=== PATIENT | male | born 1955 | race Caucasian/White ===

== ENCOUNTER 2020-10-05 08:29 | Outpatient (CLI) | payer MEDICARE, SELFPAY ==
--- NOTE | ~2020-10-05 | US_ITS ---
EXAMINATION: US right upper quadrant DATE: 10/05/2020 09:08 INDICATION: Abnormal liver function tests. TECHNIQUE: Multiple grayscale and Doppler ultrasound images of the abdomen were obtained. COMPARISON: None FINDINGS: The visualized portions of the head, body, and tail of the pancreas are normal. There is di ffuse hepatic steatosis. There is normal flow in main portal vein. The gallbladder is normal in size. No gallstones or gallbladder wall thickening. There is no sonographic Brown sign. The common duct i s normal and measures 5 mm. IMPRESSION: 1. Diffuse hepatic steatosis. Reviewed, dictated and finalized at location A.
== END 2020-10-05 08:30 | disposition home or self-care (01) ==
LOC: CHSIMG 08:31
PROVIDERS: PCP Internal Medicine; Visit Provider Internal Medicine
DX: R94.5 Abnormal results of liver function studies (principal)
CPT/HCPCS: 76705

== ENCOUNTER 2021-03-10 14:24 | Outpatient (CLI) | payer MEDICARE, SELFPAY ==
--- NOTE | ~2021-03-10 | XR_ITS ---
EXAMINATION: XR chest 2V EXAM DATE: 03/10/2021 14:43 INDICATION: Chronic cough nonproductive x 3 months no hx of resp illness . TECHNIQUE: Frontal and lateral projections of the chest obtained and reviewed. Comparison is made to prior examination from 09/12/2016. FINDINGS: There is diffuse abnormal reticulation, more pronounced than in 2017. Probably some amount of chronic interstitial lung disease. Superimposed edema or infection not excludable. Mild cardiomeg brendon. No pneumothorax or pleural effusion. There are no osseous abnormalities identified. IMPRESSION: 1. Progression of abnormal reticulation, chronic interstitial lung disease. 2. Superimposed edema or pneumonia not excludable. Reviewed, dictated and finalized at location A.
== END 2021-03-10 14:25 | disposition home or self-care (01) ==
LOC: CHSIMG 14:27
PROVIDERS: PCP Internal Medicine; Visit Provider Internal Medicine
DX: R05 Cough (principal)
CPT/HCPCS: 71046

== ENCOUNTER 2021-04-19 01:39 | Day surgery (SDC) | payer MEDICARE, SELFPAY ==
[2021-04-05 13:18] VITALS: BMI 30.2
[2021-04-19 07:44] VITALS: BP 145/75; PULSE 93; RESP 18; TEMP 36.6; O2SAT 94; BMI 30.9
[2021-04-19] MEDS: LACTATED RINGERS 1,000 ML 150 ML IV CONT (07:59)
--- NOTE | 2021-04-19 08:11 | P.CONGI_ITS ---
Assessment and Plan Assessment and plan (1) Dysphagia: Code(s): R13.10 - Dysphagia, unspecified Status: Acute Assessment and Plan: Patient complains of dysphagia. Suspicious for esophageal narrowing. Patient has a prior history of esophageal stricture ring requiring dilatation. Plan is for EGD to assess more thoroughly with possible dilatation. Continue PPI for now. Further recommendations may be given after endoscopy. (2) Encounter for screening colonoscopy: Code(s): Z12.11 - Encounter for screening for malignant neoplasm of colon Status: Acute Assessment and Plan: Patient presents for screening colonoscopy. Has been 10 years since last ex am. He appears to be at average risk for colon polyps at this time. GI Consult Note Consult date/time: 04/19/21 08:11 HPI: Chintan Garcia is a 66 year old male Presents for both colonoscopy and EGD. Patient desires neoplasia screening. Has been more than 10 years since last exam. He reports his current weight appetite bowel movements are normal. He denies abdominal pain. He has had no bleeding. Screening colonoscopy will be performed today. Patient also complains of difficulty swallowing. He reports solid food will catch in the mid substernal portion of the chest. He notices this particularly with steak and occasionally with lettuce. He has noticed these symptoms intermittently over the last 2 years. He denies any weight loss or bleeding. He does report a prior history of esophageal web requiring dilatation 10 years ago. Patient denies any heartburn. He has been maintained on proton pump inhibitors for many years. Currently takes omeprazole 20mg p.o. daily on a regular basis. EGD will be performed because of dysphagia today. Review of Systems Review of Systems: All systems reviewed & are unremarkable except as noted in HPI and below PMFSH Social History Social History Smoking status: Never smoker Alcohol intake: current Living arrangements: with family Spiritual care concerns: No Meds Home Medications and Allergies Home Medications Medication Instructions Recorded Confirmed Type amlodipine 10 mg PO DAILY 04/05/21 04/19/21 History fosinopril 20 mg PO DAILY 04/05/21 04/19/21 History lovastatin 40 mg PO DAILY 04/05/21 04/19/21 History multivitamin 1 tablet PO DAILY 04/05/21 04/19/21 History omeprazole 20 mg PO DAILY 04/05/21 04/19/21 History Allergies Allergy/AdvReac Type Severity Reaction Status Date / Time iodine Allergy Severe Rash Verified 04/19/21 07:43 --BETADINE PREP Allergy Severe Rash Uncoded 04/19/21 07:43 Vital Signs Vital Signs - 24 hr 04/19/21 07:44 Temperature 98 F Pulse Rate 93 Respiratory Rate 18 Blood Pressure 145/75 H Pulse Oximetry 94 Exam Narrative: Physical exam reveals patient to be alert. Vital signs stable. HEENT exam is unremarkable. Patient is anicteric. Lungs are clear to auscultation and percussion. Heart is without murmur or extra sounds. Abdominal exam bowel sounds are present soft nontender with no organomegaly. Digital external rectal exam is normal.
--- NOTE | 2021-04-19 08:17 | WPDANESEPPF ---
Anes - Initial Pre Proc Eval Procedure: Operation Date: 04/19/21 09:00 Proposed Procedures p Esophagogastroduodenoscopy & Screening Colonoscopy - Basil Rodas MD Date/Time: 04/19/21 08:17 Surgeon: Basil Rodas MD Pre Op Diagnosis: neoplasm screening,Esophageal stricture, dysphagia Patient Data Age: 66 Gender: M Height: 1.78 m Weight: 97.9 kg Last Vital Signs Temp 36.6 C 04/19/21 07:44 Pulse 93 04/19/21 07:44 Resp 18 04/19/21 07:44 BP 145/75 H 04/19/21 07:44 Pulse Ox 94 04/19/21 07:44 Allergies Allergy/AdvReac Type Severity Reaction Status Date / Time iodine Allergy Severe Rash Verified 04/19/21 07:43 --BETADINE PREP Allergy Severe Rash Uncoded 04/19/21 07:43 Home Medications Medication Instructions Recorded Confirmed Type amlodipine 10 mg PO DAILY 04/05/21 04/19/21 History fosinopril 20 mg PO DAILY 04/05/21 04/19/21 History lovastatin 40 mg PO DAILY 04/05/21 04/19/21 History multivitamin 1 tablet PO DAILY 04/05/21 04/19/21 History omeprazole 20 mg PO DAILY 04/05/21 04/19/21 History Patient hx anesthesia problems: none Family hx anesthesia problems: none Results Review: All pre-operative results and documents have been reviewed as part of the pre-operative evaluation. [facility] Past Medical History Medical History (Updated 04/19/21 @ 08:18 by Rigo Yusuf MD) HTN (hypertension) Hyperlipidemia Obesity Social History Social History Smoking status: Never smoker Alcohol intake: current Living arrangements: with family Spiritual care concerns: No Anes - Eval Final PreProcedure Day of Procedure 04/19/21 08:17 Patient weight: obese Heart: regular rate and rhythm Lungs: clear to auscultation Airway: Mallampati scale class II Neurological: alert and oriented Last oral intake: >/= 8 hours ASA classification: III Emergent: no Anesthetic plan: proceed Anesthesia type and monitoring: general GIVS and standard monitoring Results Review: All pre-operative results and documents have been reviewed as part of the pre-operative evaluation. Informed Consent: The patient's anesthetic plan and its attendant risks and benefits were discussed with the patient/family/POA. Questions were solicited and answers provided to the satisfaction of the patient/family/POA.
--- NOTE | 2021-04-19 09:02 | SUR.OPER ---
EGD COMPLETED AT 856, COLONOSCOPY STARTED AT 901
[2021-04-19 09:15] VITALS: BP 107/67; PULSE 85; RESP 23; O2SAT 97
[2021-04-19 09:25] VITALS: BP 122/93; PULSE 86; RESP 20; O2SAT 97
[2021-04-19 09:35] VITALS: BP 134/85; PULSE 76; RESP 25; O2SAT 97
== END 2021-04-19 09:45 | disposition home or self-care (01) ==
PROVIDERS: PCP Internal Medicine; Visit Provider Internal Medicine Gastroenterology
PROC: 0DJ08ZZ Inspection of Upper Intestinal Tract, Via Natural or Artificial Opening Endoscopic (ICD-10-PCS; CPT 43235; principal; 2021-04-19 09:00)
DX: Z12.11 Encounter for screening for malignant neoplasm of colon (principal); D12.5 Benign neoplasm of sigmoid colon; R13.10 Dysphagia, unspecified; Q39.4 Esophageal web; K64.8 Other hemorrhoids
CPT/HCPCS: 45385; 43235; 43450; 88305; J2704; J7120

== ENCOUNTER 2021-07-12 09:42 | Outpatient (CLI) | payer MEDICARE, SELFPAY ==
--- NOTE | ~2021-07-12 | XR_ITS ---
EXAMINATION: XR chest 2V EXAM DATE: 07/12/2021 10:00 INDICATION: f/u chronic lung disease . TECHNIQUE: Frontal and lateral projections of the chest obtained and reviewed. Comparison is made to prior examination from 03/10/2021. FINDINGS: Mild cardiomegaly. There is diffuse lower lung zone predominant abnormal reticulation, unc hanged compared to March, more pronounced compared to an x-ray from 2017. Could be nonspecific in terstitial pneumonitis pattern interstitial lung disease with many possible underlying etiologies inc luding collagen vascular disease, medications/drugs, prior viral infection (COVID-19), hypersensitivi ty pneumonitis, idiopathic etiologies. No pneumothorax or pleural effusion. There are no osseous abno rmalities identified. IMPRESSION: Diffuse mid and lower lung zone abnormal reticulation, likely interstitial lung disease. Reviewed, dictated and finalized at location A. PARTS CUTTER MACHINE IMPRESSION: Diffuse mid and lower lung zone abnormal reticulation, likely inte rstitial lung disease.
== END 2021-07-12 09:43 | disposition home or self-care (01) ==
LOC: CHSIMG 09:45
PROVIDERS: PCP Internal Medicine
DX: R06.89 Other abnormalities of breathing (principal)
CPT/HCPCS: 71046

== ENCOUNTER 2021-07-20 12:59 | Outpatient (CLI) | payer MEDICARE, SELFPAY ==
[2021-07-20 13:56] LABS: SARS-CoV-2 Ag Positive (Negative)
[2021-07-20 14:06] LABS: Influenza Control Valid (Valid)
== END 2021-07-20 13:00 | disposition home or self-care (01) ==
LOC: CHSLAB 13:03
PROVIDERS: PCP Internal Medicine; Visit Provider Internal Medicine
DX: U07.1 COVID-19 (principal); J06.9 Acute upper respiratory infection, unspecified
CPT/HCPCS: 87081; 87426; 87804; 87880; C9803

== ENCOUNTER 2021-07-20 15:04 | Inpatient (IN) | payer MEDICARE, SELFPAY ==
[2021-07-20] VITALS (12 sets, daily range): BP systolic 127–143; BP diastolic 65–76; PULSE 78–132; RESP 20–25; TEMP 37.1–37.9; O2SAT 76–100; BMI 29.9
--- NOTE | ~2021-07-20 | XR_ITS ---
XR chest 1V portable DATE: 07/24/2021 08:58 INDICATION: Dyspnea. Covid pneumonia. TECHNIQUE: Portable AP chest on 07/24/2021 at 0841 hours COMPARISON: 07/21/2021 CTA chest chest 07/20/2021 portable AP chest FINDINGS: Cardiomegaly. There are diffuse scattered patchy bilateral pulmonary infiltrates, without significant change since 07/20/2021. No pleural effusion or pneumothorax is evident. IMPRESSION: Relatively stable extensive scattered patchy bilateral pulmonary infiltrates since 022 Reviewed, dictated and finalized at location A. STRIAL TRUCK OPERATOR IMPRESSION: Relatively stable extensive scattered patchy bilateral pulmonary in filtrates since 07/20/2021
--- NOTE | ~2021-07-20 | NM_ITS ---
EXAMINATION: NM pulmonary perfusion DATE: 07/20/2021 19:46 INDICATION: Dyspnea. TECHNIQUE: 2.75 mCi Tc-99m MAA was administered intravenously for perfusion images. Scintigraphic im ages of the chest were obtained. COMPARISON: Chest single view 07/20/2021 FINDINGS: Obesity decreases sensitivity and specificity. Perfusion images show small and moderate sized defects in the lower lobes. Defects in the upper lobes and right middle lobe may be secondary to body wall a ttenuation. IMPRESSION: 1. Nondiagnostic (intermediate probability for pulmonary embolism). Reviewed, dictated and finalized at location A. R INSTALLER
--- NOTE | ~2021-07-20 | XR_ITS ---
EXAMINATION: XR chest 1V portable DATE: 07/20/2021 15:38 INDICATION: COVID-19 pneumonia. TECHNIQUE: A single frontal view of the chest was obtained. COMPARISON: Chest 2 views 07/12/2021, 03/10/2021, 09/12/16 FINDINGS: The lung volumes are normal. There are interstitial and airspace opacities throughout the l ungs bilaterally. No pleural effusion or pneumothorax. Cardiomegaly is noted. IMPRESSION: 1. Worsened diffuse lung disease, likely pneumonia or pulmonary edema superimposed on chronic interst itial lung disease. 2. Cardiomegaly. Reviewed, dictated and finalized at location A. R PLACER IMPRESSION: 1. Worsened diffuse lung disease, likely pneumonia or pulmonary edema superimpo sed on chronic interstitial lung disease. 2. Cardiomegaly.
--- NOTE | ~2021-07-20 | CT_ITS ---
EXAMINATION: CTA chest PE protocol DATE: 07/21/2021 18:59 INDICATION: Acute respiratory failure TECHNIQUE: Computed tomography angiography (CTA) of the chest was performed with 100 mL Omnipaque-350 intravenous contrast timed to evaluate the pulmonary arteries. Coronal maximum intensity projection 3D-reconstructions were created by the technologist. The dose-length product (DLP) was 648.24 mGy-cm. Automated exposure control and iterative reconstruction technique were employed. COMPARISON: None. FINDINGS: The pulmonary arteries are well-opacified. No pulmonary embolism is identified. The heart s ize is normal. There is calcified coronary artery atherosclerosis. There are diffuse interstitial and airspace opacities opacities throughout all lung zones. There is no pleural effusion or pneumothorax . Mildly enlarged bilateral hilar lymph nodes are likely reactive. There is moderate thoracic spondyl osis. IMPRESSION: 1. No pulmonary embolus. 2. Diffuse lung disease, consistent with COVID 19 pneumonia. Reviewed, dictated and finalized at location F. BIOLOGY TEACHER
--- NOTE | 2021-07-20 15:27 | ECG_ITS ---
Measurements Intervals [place] Rate: 114 P: 34 TN: 151 QRS: 42 QRSD: 81 T: 47 QT: 306 QTc: 421 Interpretive Statements SINUS TACHYCARDIA BORDERLINE ST ABNORMALITY- ANTERIOR LEADS ABNORMAL ECG Electronically Signed On 07-20-2021 15:33:40 GRIPPER INSTALLER by Quinton Hugo D.O.
--- NOTE | 2021-07-20 15:33 | ED.SOB ---
HPI - SOB/Dyspnea General Chief Complaint: Shortness of Breath/Dyspnea Stated Complaint: shortness of breath Time Seen by Provider: 07/20/21 15:30 Source: RN notes reviewed History of Present Illness HPI Narrative: Patient presents emergency room from home for shortness of breath. Patient states he has had shortness of breath over the past 1 week that is progressively gotten worse states he went for a COVID test today that turned out positive patient presented to ER today was noted to be hypoxic on room air and was placed on 6 L nasal cannula. Patient states he does have history of interstitial lung disease and is followed by pulmonary. States he has been running intermittent low-grade fevers denies any chest pain abdominal pain nausea vomiting states he had a cough this been nonproductive Related Data Home Medications Medication Instructions Recorded Confirmed amlodipine 10 mg PO DAILY 04/05/21 07/20/21 fosinopril 20 mg PO DAILY 04/05/21 07/20/21 lovastatin 40 mg PO DAILY 04/05/21 07/20/21 multivitamin 1 tablet PO DAILY 04/05/21 07/20/21 omeprazole 20 mg PO DAILY 04/05/21 07/20/21 Allergies Allergy/AdvReac Type Severity Reaction Status Date / Time iodine Allergy Severe Rash Verified 07/20/21 18:47 --BETADINE PREP Allergy Severe Rash Uncoded 07/20/21 18:47 Review of Systems Review of Systems: Gen.: Denies fevers or chills ENT: Denies congestion Respiratory: See HPI CV: Denies chest pain or palpitations GI: Denies abdominal pain nausea, emesis or diarrhea Musculoskeletal: Denies back pain or muscle pain Neuro: Denies numbness, tingling, weakness or focal weakness Skin: Denies rash Except as documented, all other systems reviewed and negative [facility] Past Medical History Medical History HTN (hypertension) Hyperlipidemia Obesity Family History Family History (Updated 07/20/21 @ 18:39 by Kayla Almazan RN) Mother Heart attack Father Dementia Social History Social History Smoking status: Never smoker Alcohol intake: current Substance use: never Spiritual care concerns: No Exam Narrative: APPEARANCE: No acute distress, nontoxic, resting in bed EYES: EOMI HEENT: Normocephalic, atraumatic, OMM RESPIRATORY: No respiratory distress coarse breath sounds throughout bilateral lung multani CARDIOVASCULAR: Regular rate and rhythm without murmurs rubs or gallops. ABDOMINAL: Soft, nontender, nondistended, no rebound or guarding MUSCULOSKELETAl: Moves all extremities. No clubbing, cyanosis or edema. NEURO: Awake and alert. Following commands, speech normal, no focal deficits SKIN:: Warm, dry. No rashes lesions or abrasions PSYCHIATRIC: Normal affect/mood, Course Course Emergency Course: Discussed with PRETZEL TWISTER Kasie for Dr. Rios presentation work-up agrees with admission at this time. Request patient started on remdesivir and Decadron Discussed with patient and family results of workup and diagnosis. Discussed need for admission. Patient and family understand and agree to current treatment plan Patient awaiting VQ scan radiology had difficulty paging and nuclear medicine is on the way and while patient go to his room awaiting nuclear medicine scan Patient's VQ scan came back as indeterminate once upstairs I discussed with Dr. Lam and they will place orders for Lovenox Vital Signs Vital signs: Vital Signs Temperature 99.8 F H 07/20/21 15:09 Pulse Rate 132 H 07/20/21 15:09 Respiratory Rate 24 H 07/20/21 15:09 Blood Pressure 143/73 H 07/20/21 15:09 Pulse Oximetry 76 L 07/20/21 15:09 Temperature 100.3 F H 07/20/21 18:05 Pulse Rate 102 H 07/20/21 18:14 Respiratory Rate 24 H 07/20/21 18:14 Blood Pressure 140/74 07/20/21 18:14 Pulse Oximetry 98 07/20/21 18:14 MDM - SOB/Dyspnea Lab Data Result diagrams: 07/20/21 16:07 07/20/21 16:07
[2021-07-20 16:14] LABS: Basophils Percent Auto 0.2 % (0.2-1.2); Eosinophils Percent Auto 0.2 % (0-4.4); Hematocrit 36.7 % (42.0-52.0); Hemoglobin 12.4 g/dL (14.0-18.0); Immature Granulocyte Absolute 0.06 K/mm3 (0.00-0.031); Immature Granulocyte Percent A 1.1 % (0-0.5); Lymphocytes Absolute Auto 1.19 K/mm3 (0.9-3.2); Lymphocytes Percent Auto 22.4 % (18.3-44.2); Mean Corpuscular HGB Conc 33.8 g/dl (32-36); Mean Corpuscular Hemoglobin 37.2 pg (26-34); Mean Corpuscular Volume 110.2 fl (80-100); Mean Platelet Volume 9.9 fl (7.4-10.4); Monocytes Absolute Auto 0.6 K/mm3 (0.1-0.6); Monocytes Percent Auto 11.1 % (2.6-8.5); Neutrophils Absolute Auto 3.5 K/mm3 (1.3-6.7); Nucleated Red Blood Cells Absolute Auto 0.1 K/mm3 (0.0-0.012); Nucleated Red Blood Cells Perc 1.7 % (0.0-0.2); Platelet Count Result 144 k/mm3 (150-375); Red Blood Count 3.33 M/mm3 (4.6-6.20); Red Cell Distribution Width 13.6 % (11.5-14.5); White Blood Count 5.3 K/mm3 (4.5-10.0)
[2021-07-20 16:31] LABS: Prothrombin Time 13.5 Seconds (11.1-14.7)
[2021-07-20 16:32] LABS: Partial Thromboplastin Time 29.7 SECONDS (22.3-36.8)
[2021-07-20 17:08] LABS: Alanine Aminotransferase 32 U/L (4-50); Albumin Level 3.9 g/dL (3.5-5.1); Alkaline Phosphatase 90 U/L (38-126); Anion Gap 3 mmol/L (8-16); Aspartate Amino Transferase 50 U/L (17-59); Bilirubin,Total 0.6 mg/dL (0.2-1.3); Blood Urea Nitrogen 12 mg/dL (9-20); Calcium 8.9 mg/dL (8.4-10.2); Carbon Dioxide 33 mmol/L (22-30); Chloride 100 mmol/L (98-107); Estimated CRCL calculation 75 ml/min; Estimated Glomerular Filt Rate > 60; Glucose 153 mg/dL (65-110); Potassium 4.3 mmol/L (3.4-5.0); Sodium 136 mmol/L (137-145)
[2021-07-20 17:33] LABS: CRP 12.9 mg/dL (<1.0); Lactate Dehydrogenase 995 U/L (313-618)
--- NOTE | 2021-07-20 18:32 | ADMGEN ---
This patient, Chintan Garcia, was admitted to [facility] Surg Room 303-01. Patient/family oriented to hospital policies and general routines including ID bracelet, bed and alarms, visiting hours, pain management, procedures, bathroom and other care routines, personal items, smoking policy, room service/diet, and visiting hours. Information on how to activate the Rapid Response Team has been discussed. Patient/Family are encouraged to report perceived risks to care and to ask questions if they do not understand what they are told or what they should do.
[2021-07-20] MEDS: REMDESIVIR 200 MG/NS 250 ML 200 MG/250 ML BAG 250 MG IVPB (18:52)
[2021-07-20] MEDS: ALBUTEROL SULFATE (*SP) INHALER 2 PUFF INHALATION (20:09)
[2021-07-20] MEDS: ENOXAPARIN 100 MG/ML SYRINGE SUB-Q (21:48)
[2021-07-21] VITALS (9 sets, daily range): BP systolic 104–127; BP diastolic 52–75; PULSE 78–96; RESP 14–20; TEMP 36.1–36.8; O2SAT 94–100
[2021-07-21] MEDS: ALBUTEROL SULFATE (*SP) INHALER 2 PUFF INHALATION ×4 (02:04→21:28)
--- NOTE | 2021-07-21 03:07 | PM.IMHP ---
H&P: HPI History of Present Illness Date/Time: 07/20/21 2758 this is a 66-year-old male patient who has been fully vaccinated for COVID-19. The patient presented to the emergency room with complaints of shortness of breath. He has been short of breath over 1 week and has progressively gotten worse. The patient stated that he is the only 1 in his household that is ill. He denies any other sick contacts. The patient stated that he had a COVID test today and it came out positive so he presented to the emergency room. The patient does have a history of interstitial lung disease and is followed by investment recovery technician. The patient has been running low-grade fevers. He has also had a cough that been nonproductive. The patient had 1 reading of 76% on his pulse ox. The patient was placed on 6 L per nasal cannula. He is now down to 3 L per nasal cannula. His H&H is 12.4 and 36.7. His D-dimer was noted to be 1.7. He does have an iodine allergy. Sodium is 136. His blood sugar was 153. LDH is 995. C reactive protein is 12.9. The patient was negative for influenza and group a strep. However he was positive for SARs COVID today. The patient was started on Decadron and remdesivir. He was also ordered a nebulizer treatment given IV Tylenol for the fever. The patient's pulmonary perfusion test was read as nondiagnostic indeterminate probability for pulmonary embolism. Perfusion images show small and moderate size defects in the lower lobes. Defects in the upper lobes and right middle lobes may be secondary to body wall attenuation. However the patient was empirically started on subcu Lovenox. May consider Pre treating the patient for the iodine allergy and retesting with a CTA. Patient is being admitted for observation status on the date of service of 07/21/2021. Chief Complaint: Shortness of breath Review of Systems Review of Systems: All systems reviewed & are unremarkable except as noted in HPI and below Constitutional: Constitutional: Reports as per HPI and Reports no additional constitutional complaints Eyes: Eyes: Reports as per HPI and Reports no additional eye complaints ENT: Reports system reviewed and no additional complaints, except as documented and Reports Normal hearing present Cardiovascular: Cardiovascular: Reports no additional cardiovascular complaints Respiratory: Respiratory: Reports no additional respiratory complaints and Reports no additional respiratory complaints Gastrointestinal: Gastrointestinal: Reports as per HPI and Reports no additional gastrointestinal complaints Musculoskeletal: Musculoskeletal: Reports no additional musculoskeletal complaints Integumentary/Breasts: Skin/Breast: Reports system reviewed and no additional complaints, except as docu and Reports as per HPI Neurologic: Reports system reviewed and no additional complaints, except as documented, Reports as per HPI and Reports Normal hearing present Psychiatric: Psychiatric: Reports no additional psychiatric complaints and Reports as per HPI Endocrine: Endocrine: Reports no additional endocrine complaints Hematologic/Lymphatic: Hematologic/Lymphatic: Reports no additional hematologic/lymphatic complaints Allergic/Immunologic: Allergic/Immunologic: Reports no additional allergic/immunologic complaints [facility] Past Medical History Medical History (Updated 07/21/21 @ 03:25 by Kasie Sandhu NP) HTN (hypertension) Hyperlipidemia Neck pain with history of cervical spinal surgery Obesity Surgical History Surgical History (Updated 07/21/21 @ 03:19 by Kasie Sandhu NP) History of cervical spinal surgery History of open reduction and internal fixation (ORIF) procedure Plate to left ankle which was subsequently removed. History of total hip replacement Bilat Family History Family History Mother Heart attack Father Dementia Social History Social History (Updated 07/21/21 @ 03:20
[2021-07-21 07:04] LABS: INR 1.1; Prothrombin Time 14.3 Seconds (11.1-14.7)
[2021-07-21 07:06] LABS: Immature Granulocyte Absolute 0.05 K/mm3 (0.00-0.031); Immature Granulocyte Percent A 1.2 % (0-0.5); Lymphocytes Absolute Auto 0.72 K/mm3 (0.9-3.2); Lymphocytes Percent Auto 17.1 % (18.3-44.2); Mean Corpuscular HGB Conc 33.3 g/dl (32-36); Mean Corpuscular Hemoglobin 36.7 pg (26-34); Mean Corpuscular Volume 110.1 fl (80-100); Mean Platelet Volume 10.7 fl (7.4-10.4); Monocytes Absolute Auto 0.3 K/mm3 (0.1-0.6); Monocytes Percent Auto 7.6 % (2.6-8.5); Neutrophils Absolute Auto 3.1 K/mm3 (1.3-6.7); Neutrophils Percent Auto 74.1 % (45.5-73.1); Nucleated Red Blood Cells Perc 0.5 % (0.0-0.2); Platelet Count Result 153 k/mm3 (150-375); Red Blood Count 3.27 M/mm3 (4.6-6.20); Red Cell Distribution Width 13.5 % (11.5-14.5); White Blood Count 4.2 K/mm3 (4.5-10.0)
[2021-07-21 07:17] LABS: Alanine Aminotransferase 29 U/L (4-50); Albumin Level 3.7 g/dL (3.5-5.1); Alkaline Phosphatase 84 U/L (38-126); Anion Gap 5 mmol/L (8-16); Aspartate Amino Transferase 38 U/L (17-59); Bilirubin,Total 0.5 mg/dL (0.2-1.3); Blood Urea Nitrogen 13 mg/dL (9-20); Calcium 8.8 mg/dL (8.4-10.2); Carbon Dioxide 30 mmol/L (22-30); Chloride 103 mmol/L (98-107); Estimated CRCL calculation 95 ml/min; Estimated Glomerular Filt Rate > 60; Glucose 196 mg/dL (65-110); Potassium 4.1 mmol/L (3.4-5.0); Sodium 138 mmol/L (137-145)
[2021-07-21 07:19] LABS: Lactic Acid Reflex 1.2 mmol/L (0.7-2.1)
[2021-07-21 07:47] LABS: CRP 11.7 mg/dL (<1.0); Lactate Dehydrogenase 906 U/L (313-618); Magnesium 2.4 mg/dL (1.6-2.3)
[2021-07-21 08:09] LABS: Thyroid Stimulating Hormone Reflex 0.296 uIU/mL (0.465-4.68)
[2021-07-21] MEDS: ENOXAPARIN 100 MG/ML SYRINGE SUB-Q ×3 (09:12→20:57)
[2021-07-21] MEDS: PANTOPRAZOLE 40 MG TABLET PO (09:14)
[2021-07-21] MEDS: amLODIPine BESYLATE 5 MG TABLET 10 MG PO (09:14)
[2021-07-21] MEDS: LOVASTATIN 20 MG TABLET 40 MG PO (09:14)
[2021-07-21] MEDS: lisinopriL 20 MG TABLET PO (09:15)
[2021-07-21] MEDS: MULTIVITAMINS THERAPEUTIC TAB (*BKC) 1 TABLET PO (09:15)
--- NOTE | 2021-07-21 09:15 | PM.IMPN ---
Progress Note: A&P Assessment and Plan (1) Acute respiratory failure with hypoxia: Code(s): J96.01 - Acute respiratory failure with hypoxia Status: Acute Assessment and Plan: pulse ox reported to get as far as 76%. 6 L per nasal cannula titrated to 2LNC Patient states history of chronic interstitial lung disease Wean O2 to maintain saturation greater than 90% V/Q scan showed nondiagnostic intermediate likelihood of PE CTA ordered and pending due to allergies (2) HTN (hypertension): Code(s): I10 - Essential (primary) hypertension Status: Chronic Assessment and Plan: Current 116/71 Continue with home medications of fosinopril and amlodipine Trend blood pressure Adjust medications as indicated (3) Hyperlipidemia: Code(s): E78.5 - Hyperlipidemia, unspecified Status: Chronic Assessment and Plan: Continue with lovastatin continue to monitor liver functions. (4) Pneumonia due to COVID-19 virus: Code(s): U07.1 - COVID-19; J12.82 - Pneumonia due to coronavirus disease 2018 Status: Acute Assessment and Plan: Tested positive for COVID on 07/20/2021 Requiring supplemental oxygen Started on Decadron and remdesivir day 2 Tylenol for pain and fever Albuterol inhaler Anti-tussives Chest x-ray shows worsened lung disease likely pneumonia or pulmonary edema superimposed by chronic interstitial lung disease, cardiomegaly Strep a pending CTA is pending Inflammatory markers: Ferritin 535, LDH 906, CRP 11.7 Additional Plan I think this patient might have a pulmonary embolism due to tachycardic low saturations and oxygen requirements. Did give a 1 time dose of therapeutic Lovenox. V/Q scan did show intermediate probability of a PE. CTA is pending however had to treat for allergy. Time Spent With Patient Time with patient: Greater than 35 minutes Subjective Date/time seen: 07/21/21 0915 Interval history: Date/Time: 07/20/21 0720 This is a 66-year-old male patient who has been fully vaccinated for COVID-19. The patient presented to the emergency room with complaints of shortness of breath. He has been short of breath over 1 week and has progressively gotten worse. The patient stated that he is the only 1 in his household that is ill. He denies any other sick contacts. The patient stated that he had a COVID test today and it came out positive so he presented to the emergency room. The patient does have a history of interstitial lung disease and is followed by spotter. The patient has been running low-grade fevers. He has also had a cough that been nonproductive. The patient had 1 reading of 76% on his pulse ox. The patient was placed on 6 L per nasal cannula. He is now down to 3 L per nasal cannula. His H&H is 12.4 and 36.7. His D-dimer was noted to be 1.7. He does have an iodine allergy. Sodium is 136. His blood sugar was 153. LDH is 995. C reactive protein is 12.9. The patient was negative for influenza and group a strep. However he was positive for SARs COVID today. The patient was started on Decadron and remdesivir. He was also ordered a nebulizer treatment given IV Tylenol for the fever. The patient's pulmonary perfusion test was read as nondiagnostic indeterminate probability for pulmonary embolism. Perfusion images show small and moderate size defects in the lower lobes. Defects in the upper lobes and right middle lobes may be secondary to body wall attenuation. However the patient was empirically started on subcu Lovenox. May consider Pre treating the patient for the iodine allergy and retesting with a CTA. Date/Time: 07/21/21 4185 Patient is doing okay today. Patient stated that last Sunday get his COVID vaccination booster of [employer]. Patient did get [employer] vaccine at . Patient stated last Sunday is when he got as booster last he noticed a decline in his saturations.
[2021-07-21 09:17] LABS: Free T4 Free Thyroxine Reflex 0.91 ng/dL (0.78-2.19)
[2021-07-21 10:08] LABS: Total Triiodothyronine (T3) 0.83 NG/ML (0.97-1.69)
[2021-07-21] MEDS: DEXAMETHASONE SOD PHOS INJ 4 MG/ML VIAL 1.5 MG IV PUSH (13:34)
[2021-07-21] MEDS: diphenhydrAMINE HCl INJ 50 MG/ML VIAL IV PUSH (17:10)
[2021-07-21] MEDS: REMDESIVIR 100 MG/NS 250 ML 100 MG/250 ML BAG 250 MG IVPB (20:57)
[2021-07-22] VITALS (9 sets, daily range): BP systolic 111–130; BP diastolic 58–72; PULSE 72–98; RESP 18–21; TEMP 36.3–37; O2SAT 91–96
[2021-07-22] MEDS: ALBUTEROL SULFATE (*SP) INHALER 2 PUFF INHALATION ×4 (01:28→19:19)
[2021-07-22 06:25] LABS: Basophils Percent Auto 0.1 % (0.2-1.2); Hematocrit 34.8 % (42.0-52.0); Hemoglobin 11.6 g/dL (14.0-18.0); Immature Granulocyte Absolute 0.09 K/mm3 (0.00-0.031); Lymphocytes Absolute Auto 0.94 K/mm3 (0.9-3.2); Lymphocytes Percent Auto 10.2 % (18.3-44.2); Mean Corpuscular HGB Conc 33.3 g/dl (32-36); Mean Corpuscular Hemoglobin 36.8 pg (26-34); Mean Corpuscular Volume 110.5 fl (80-100); Mean Platelet Volume 10.7 fl (7.4-10.4); Monocytes Absolute Auto 0.5 K/mm3 (0.1-0.6); Monocytes Percent Auto 5.4 % (2.6-8.5); Neutrophils Absolute Auto 7.7 K/mm3 (1.3-6.7); Neutrophils Percent Auto 83.3 % (45.5-73.1); Nucleated Red Blood Cells Perc 0.3 % (0.0-0.2); Platelet Count Result 168 k/mm3 (150-375); Red Blood Count 3.15 M/mm3 (4.6-6.20); Red Cell Distribution Width 13.8 % (11.5-14.5); White Blood Count 9.2 K/mm3 (4.5-10.0)
[2021-07-22 06:36] LABS: Alanine Aminotransferase 28 U/L (4-50); Albumin Level 3.5 g/dL (3.5-5.1); Alkaline Phosphatase 77 U/L (38-126); Anion Gap 7 mmol/L (8-16); Aspartate Amino Transferase 36 U/L (17-59); Bilirubin,Total 0.4 mg/dL (0.2-1.3); Blood Urea Nitrogen 16 mg/dL (9-20); CRP 5.6 mg/dL (<1.0); Calcium 8.9 mg/dL (8.4-10.2); Carbon Dioxide 27 mmol/L (22-30); Chloride 104 mmol/L (98-107); Estimated CRCL calculation 95 ml/min; Estimated Glomerular Filt Rate > 60; Glucose 254 mg/dL (65-110); Lactate Dehydrogenase 847 U/L (313-618); Magnesium 2.4 mg/dL (1.6-2.3); Potassium 4.2 mmol/L (3.4-5.0); Sodium 138 mmol/L (137-145)
[2021-07-22 06:39] LABS: INR 1.1; Prothrombin Time 13.7 Seconds (11.1-14.7)
[2021-07-22] MEDS: amLODIPine BESYLATE 5 MG TABLET 10 MG PO (09:11)
[2021-07-22] MEDS: LOVASTATIN 20 MG TABLET 40 MG PO (09:11)
[2021-07-22] MEDS: MULTIVITAMINS THERAPEUTIC TAB (*BKC) 1 TABLET PO (09:11)
[2021-07-22] MEDS: lisinopriL 20 MG TABLET PO (09:11)
[2021-07-22] MEDS: ENOXAPARIN 100 MG/ML SYRINGE SUB-Q ×2 (09:11→21:17)
[2021-07-22] MEDS: PANTOPRAZOLE 40 MG TABLET PO (09:11)
--- NOTE | 2021-07-22 11:00 | PM.IMPN ---
Progress Note: A&P Assessment and Plan (1) Acute respiratory failure with hypoxia: Code(s): J96.01 - Acute respiratory failure with hypoxia Status: Acute Assessment and Plan: pulse ox reported to get as far as 76%. 6 L per nasal cannula titrated to 2LNC Currently patient is breathing comfortably on 3 L. Patient states history of chronic interstitial lung disease; he was not previously on oxygen. Wean O2 to maintain saturation greater than 90% V/Q scan showed nondiagnostic intermediate likelihood of PE CTA: No pulmonary embolus. (2) HTN (hypertension): Code(s): I10 - Essential (primary) hypertension Status: Chronic Assessment and Plan: Well controlled in the 118/50 8-119/69 range. Continue with home medications of fosinopril and amlodipine. In the setting of acute illness, will hold fosinopril. Target blood pressure 140/90. Adjust medications as indicated (3) Hyperlipidemia: Code(s): E78.5 - Hyperlipidemia, unspecified Status: Chronic Assessment and Plan: Continue with lovastatin continue to monitor liver functions. (4) Pneumonia due to COVID-19 virus: Code(s): U07.1 - COVID-19; J12.82 - Pneumonia due to coronavirus disease 2018 Status: Acute Assessment and Plan: Tested positive for COVID on 07/20/2021 Requiring supplemental oxygen Started on Decadron and remdesivir day 3 Tylenol for pain and fever Albuterol inhaler Anti-tussives Chest x-ray shows worsened lung disease likely pneumonia or pulmonary edema superimposed by chronic interstitial lung disease, cardiomegaly Strep A negative; influenza a and B negative. Inflammatory markers: Ferritin 535, LDH 906, CRP 11.7. Repeat ferritin 589, LDH 847, CRP 5.6. Trend inflammatory markers. Additional Plan I think this patient might have a pulmonary embolism due to tachycardic low saturations and oxygen requirements. Did give a 1 time dose of therapeutic Lovenox. V/Q scan did show intermediate probability of a PE. CTA is pending however had to treat for allergy. Subjective Date/time seen: 07/22/21 11:00 S: Patient is examined at the bedside. He denies any complaints. He carries a diagnosis of interstitial pulmonary disease. He is anxious to go home. Review of Systems Review of Systems: All systems reviewed & are unremarkable except as noted in HPI and below Constitutional: Constitutional: Reports as per HPI and Reports no additional constitutional complaints Eyes: Eyes: Reports as per HPI and Reports no additional eye complaints ENT: Reports system reviewed and no additional complaints, except as documented and Reports Normal hearing present Cardiovascular: Cardiovascular: Reports no additional cardiovascular complaints Respiratory: Respiratory: Reports no additional respiratory complaints and Reports no additional respiratory complaints Gastrointestinal: Gastrointestinal: Reports as per HPI and Reports no additional gastrointestinal complaints Musculoskeletal: Musculoskeletal: Reports no additional musculoskeletal complaints Integumentary/Breasts: Skin/Breast: Reports system reviewed and no additional complaints, except as docu and Reports as per HPI Neurologic: Reports system reviewed and no additional complaints, except as documented, Reports as per HPI and Reports Normal hearing present Psychiatric: Psychiatric: Reports no additional psychiatric complaints and Reports as per HPI Endocrine: Endocrine: Reports no additional endocrine complaints Hematologic/Lymphatic: Hematologic/Lymphatic: Reports no additional hematologic/lymphatic complaints Allergic/Immunologic: Allergic/Immunologic: Reports no additional allergic/immunologic complaints Exam Const: General: cooperative, comfortable, no acute distress, well developed, alert, awake and Physically active Nutritional Appearance: average body habitus Orientation/consciousness: oriented to
[2021-07-22] MEDS: REMDESIVIR 100 MG/NS 250 ML 100 MG/250 ML BAG 250 MG IVPB (20:58)
[2021-07-23] VITALS (11 sets, daily range): BP systolic 103–120; BP diastolic 53–69; PULSE 85–96; RESP 18–22; TEMP 36.2–36.8; O2SAT 93–97
[2021-07-23] MEDS: ALBUTEROL SULFATE (*SP) INHALER 2 PUFF INHALATION ×4 (01:55→19:45)
[2021-07-23 06:58] LABS: Alanine Aminotransferase 25 U/L (4-50); Estimated CRCL calculation 84 ml/min; Estimated Glomerular Filt Rate > 60
[2021-07-23 07:03] LABS: INR 1.2; Prothrombin Time 14.7 Seconds (11.1-14.7)
[2021-07-23] MEDS: lisinopriL 20 MG TABLET PO (09:16)
[2021-07-23] MEDS: amLODIPine BESYLATE 5 MG TABLET 10 MG PO (09:16)
[2021-07-23] MEDS: PANTOPRAZOLE 40 MG TABLET PO (09:16)
[2021-07-23] MEDS: MULTIVITAMINS THERAPEUTIC TAB (*BKC) 1 TABLET PO (09:16)
[2021-07-23] MEDS: LOVASTATIN 20 MG TABLET 40 MG PO (09:16)
[2021-07-23] MEDS: ENOXAPARIN 100 MG/ML SYRINGE SUB-Q ×2 (09:17→21:26)
--- NOTE | 2021-07-23 10:47 | PM.IMPN ---
Progress Note: A&P Assessment and Plan (1) Acute respiratory failure with hypoxia: Code(s): J96.01 - Acute respiratory failure with hypoxia Status: Acute Assessment and Plan: Acute respiratory failure improving; patient is down to 1.5 L. pulse ox reported to get as far as 76%. at baseline patient is saturating 85% on room air at home. He was not previously on oxygen. 6 L per nasal cannula titrated to 2LNC Currently patient is breathing comfortably on 3 L. Patient states history of chronic interstitial lung disease; he was not previously on oxygen. Wean O2 to maintain saturation greater than 90% V/Q scan showed nondiagnostic intermediate likelihood of PE CTA: No pulmonary embolus. (2) HTN (hypertension): Code(s): I10 - Essential (primary) hypertension Status: Chronic Assessment and Plan: Well controlled in the 118/50 8-119/69 range. Continue with home medications of fosinopril and amlodipine. In the setting of acute illness, will hold fosinopril. Target blood pressure 140/90. Adjust medications as indicated (3) Hyperlipidemia: Code(s): E78.5 - Hyperlipidemia, unspecified Status: Chronic Assessment and Plan: Continue with lovastatin continue to monitor liver functions. (4) Pneumonia due to COVID-19 virus: Code(s): U07.1 - COVID-19; J12.82 - Pneumonia due to coronavirus disease 2018 Status: Acute Assessment and Plan: Tested positive for COVID on 07/20/2021 Requiring supplemental oxygen Continue Decadron and remdesivir day 4 Tylenol for pain and fever Albuterol inhaler Anti-tussives Chest x-ray shows worsened lung disease likely pneumonia or pulmonary edema superimposed by chronic interstitial lung disease, cardiomegaly Strep A negative; influenza a and B negative. Inflammatory markers: Ferritin 535, LDH 906, CRP 11.7. Repeat ferritin 589, LDH 847, CRP 5.6. Trend inflammatory markers. Subjective Date/time seen: 07/23/21 1:47 S: Patient was seen and examined at the bedside. He is in very good spirits. He is anxious to go home. Review of Systems Review of Systems: All systems reviewed & are unremarkable except as noted in HPI and below Constitutional: Constitutional: Reports as per HPI and Reports no additional constitutional complaints Eyes: Eyes: Reports as per HPI and Reports no additional eye complaints ENT: Reports system reviewed and no additional complaints, except as documented and Reports Normal hearing present Cardiovascular: Cardiovascular: Reports no additional cardiovascular complaints Respiratory: Respiratory: Reports no additional respiratory complaints and Reports no additional respiratory complaints Gastrointestinal: Gastrointestinal: Reports as per HPI and Reports no additional gastrointestinal complaints Musculoskeletal: Musculoskeletal: Reports no additional musculoskeletal complaints Integumentary/Breasts: Skin/Breast: Reports system reviewed and no additional complaints, except as docu and Reports as per HPI Neurologic: Reports system reviewed and no additional complaints, except as documented, Reports as per HPI and Reports Normal hearing present Psychiatric: Psychiatric: Reports no additional psychiatric complaints and Reports as per HPI Endocrine: Endocrine: Reports no additional endocrine complaints Hematologic/Lymphatic: Hematologic/Lymphatic: Reports no additional hematologic/lymphatic complaints Allergic/Immunologic: Allergic/Immunologic: Reports no additional allergic/immunologic complaints Exam Const: General: cooperative, comfortable, no acute distress, well developed, alert, awake and Physically active Nutritional Appearance: average body habitus Orientation/consciousness: oriented to person, oriented to place, oriented to time and patient oriented x3 Limitations: no limitations HENMT: Head: normal to inspection and No palpable skull fracture present
--- NOTE | 2021-07-23 10:47 | P.PNIM_ITS ---
Progress Note: A&P Assessment and Plan (1) Acute respiratory failure with hypoxia: Code(s): J96.01 - Acute respiratory failure with hypoxia Status: Acute Assessment and Plan: * Acute respiratory failure improving; patient is down to 1.5 L. * pulse ox reported to get as far as 76%. at baseline patient is saturating 85% on room air at home. He was not previously on oxygen. * 6 L per nasal cannula titrated to 2LNC * Currently patient is breathing comfortably on 3 L. * Patient states history of chronic interstitial lung disease; he was not previously on oxygen. * Wean O2 to maintain saturation greater than 90% * V/Q scan showed nondiagnostic intermediate likelihood of PE CTA: No pulmonary embolus. (2) HTN (hypertension): Code(s): I10 - Essential (primary) hypertension Status: Chronic Assessment and Plan: * Well controlled in the 118/50 8-119/69 range. * Continue with home medications of fosinopril and amlodipine. * In the setting of acute illness, will hold fosinopril. Target blood pressure 140/90. * Adjust medications as indicated (3) Hyperlipidemia: Code(s): E78.5 - Hyperlipidemia, unspecified Status: Chronic Assessment and Plan: * Continue with lovastatin continue to monitor liver functions. (4) Pneumonia due to COVID-19 virus: Code(s): U07.1 - COVID-19; J12.82 - Pneumonia due to coronavirus disease 2019 Status: Acute Assessment and Plan: * Tested positive for COVID on 07/20/2021 * Requiring supplemental oxygen * Continue Decadron and remdesivir day 4 * Tylenol for pain and fever * Albuterol inhaler * Anti-tussives * Chest x-ray shows worsened lung disease likely pneumonia or pulmonary edema superimposed by chronic interstitial lung disease, cardiomegaly * Strep A negative; influenza a and B negative. * Inflammatory markers: Ferritin 535, LDH 906, CRP 11.7. Repeat ferritin 589, LDH 847, CRP 5.6. Trend inflammatory markers. Subjective Date/time seen: 07/23/21 1:47 S: Patient was seen and examined at the bedside. He is in very good spirits. He is anxious to go home. Review of Systems Review of Systems: All systems reviewed & are unremarkable except as noted in HPI and below Constitutional: Constitutional: Reports as per HPI and Reports no additional constitutional complaints Eyes: Eyes: Reports as per HPI and Reports no additional eye complaints ENT: Reports system reviewed and no additional complaints, except as documented and Reports Normal hearing present Cardiovascular: Cardiovascular: Reports no additional cardiovascular complaints Respiratory: Respiratory: Reports no additional respiratory complaints and Reports no additional respiratory complaints Gastrointestinal: Gastrointestinal: Reports as per HPI and Reports no additional gastrointestinal complaints Musculoskeletal: Musculoskeletal: Reports no additional musculoskeletal complaints Integumentary/Breasts: Skin/Breast: Reports system reviewed and no additional complaints, except as docu and Reports as per HPI Neurologic: Reports system reviewed and no additional complaints, except as documented, Reports as per HPI and Reports Normal hearing present Psychiatric: Psychiatric: Reports no additional psychiatric complaints and Reports as per HPI Endocrine: Endocrine: Reports no additional endocrine complaints Hematologic/Lymphatic: Hematologic/Lymphatic: Reports no add
[2021-07-23] MEDS: REMDESIVIR 100 MG/NS 250 ML 100 MG/250 ML BAG 250 MG IVPB (21:25)
[2021-07-24] VITALS (11 sets, daily range): BP systolic 115–130; BP diastolic 65–74; PULSE 75–102; RESP 18–20; TEMP 36.1–36.7; O2SAT 85–97
[2021-07-24] MEDS: ALBUTEROL SULFATE (*SP) INHALER 2 PUFF INHALATION ×2 (01:38→10:45)
[2021-07-24 06:59] LABS: INR 1.2; Prothrombin Time 14.6 Seconds (11.1-14.7)
[2021-07-24 07:00] LABS: Alanine Aminotransferase 33 U/L (4-50); CRP 1.7 mg/dL (<1.0); Estimated CRCL calculation 84 ml/min; Estimated Glomerular Filt Rate > 60; Lactate Dehydrogenase 1053 U/L (313-618)
[2021-07-24] MEDS: ENOXAPARIN 100 MG/ML SYRINGE SUB-Q (08:50)
[2021-07-24] MEDS: LOVASTATIN 20 MG TABLET 40 MG PO (08:50)
[2021-07-24] MEDS: PANTOPRAZOLE 40 MG TABLET PO (08:51)
[2021-07-24] MEDS: MULTIVITAMINS THERAPEUTIC TAB (*BKC) 1 TABLET PO (08:51)
[2021-07-24] MEDS: lisinopriL 20 MG TABLET PO (08:51)
[2021-07-24] MEDS: amLODIPine BESYLATE 5 MG TABLET 10 MG PO (08:51)
--- NOTE | 2021-07-24 09:52 | PM.IMPN ---
Progress Note: A&P Assessment and Plan (1) Acute respiratory failure with hypoxia: Code(s): J96.01 - Acute respiratory failure with hypoxia Status: Acute Assessment and Plan: Acute respiratory failure improving; patient is saturating 90% on room air. pulse ox reported to drop as low as 76%. Prior to admission, he was saturating 85% on room air at home. At baseline he saturates in the mid 90s and has been monitoring his pulse oximetry due to his history of chronic lung disease. He was not previously on oxygen. 6 L per nasal cannula titrated to 2LNC Currently patient is breathing comfortably on room air. He has completed a course of remdesivir. Obtain home O2 evaluation with rest and with exercise prior to discharge.. Patient states history of chronic interstitial lung disease; he was not previously on oxygen. Wean O2 to maintain saturation greater than 90% V/Q scan showed nondiagnostic intermediate likelihood of PE CTA: No pulmonary embolus. (2) HTN (hypertension): Code(s): I10 - Essential (primary) hypertension Status: Chronic Assessment and Plan: Blood pressure is well controlled in the 118/60 5-1 30/74 range. Continue with home medications of fosinopril and amlodipine. In the setting of acute illness, will hold fosinopril. Target blood pressure 140/90. Adjust medications as indicated (3) Hyperlipidemia: Code(s): E78.5 - Hyperlipidemia, unspecified Status: Chronic Assessment and Plan: Continue with lovastatin continue to monitor liver functions. (4) Pneumonia due to COVID-19 virus: Code(s): U07.1 - COVID-19; J12.82 - Pneumonia due to coronavirus disease 2019 Status: Acute Assessment and Plan: Tested positive for COVID on 07/20/2021 Requiring supplemental oxygen Patient has completed Decadron and remdesivir day 5 Tylenol for pain and fever Albuterol inhaler Anti-tussives Chest x-ray shows worsened lung disease likely pneumonia or pulmonary edema superimposed by chronic interstitial lung disease, cardiomegaly Strep A negative; influenza a and B negative. Inflammatory markers: Ferritin 535, LDH 906, CRP 11.7. Repeat ferritin 589, LDH 847, CRP 5.6. Trend inflammatory markers. Repeat ferritin 504, LDH 1053, CRP 1.7. Subjective Date/time seen: 01/23/22 12:52 S: Patient was seen examined at the bedside. He is anxious to go home. He was saturating low 90s on room air. Review of Systems Review of Systems: All systems reviewed & are unremarkable except as noted in HPI and below Constitutional: Constitutional: Reports as per HPI and Reports no additional constitutional complaints Eyes: Eyes: Reports as per HPI and Reports no additional eye complaints ENT: Reports system reviewed and no additional complaints, except as documented and Reports Normal hearing present Cardiovascular: Cardiovascular: Reports no additional cardiovascular complaints Respiratory: Respiratory: Reports no additional respiratory complaints and Reports no additional respiratory complaints Gastrointestinal: Gastrointestinal: Reports as per HPI and Reports no additional gastrointestinal complaints Musculoskeletal: Musculoskeletal: Reports no additional musculoskeletal complaints Integumentary/Breasts: Skin/Breast: Reports system reviewed and no additional complaints, except as docu and Reports as per HPI Neurologic: Reports system reviewed and no additional complaints, except as documented, Reports as per HPI and Reports Normal hearing present Psychiatric: Psychiatric: Reports no additional psychiatric complaints and Reports as per HPI Endocrine: Endocrine: Reports no additional endocrine complaints Hematologic/Lymphatic: Hematologic/Lymphatic: Reports no additional hematologic/lymphatic complaints Allergic/Immunologic: Allergic/Immunologic: Reports no additional allergic/immunologic complaints Exam Const: General: dangelo
--- NOTE | 2021-07-24 09:52 | P.PNIM_ITS ---
Progress Note: A&P Assessment and Plan (1) Acute respiratory failure with hypoxia: Code(s): J96.01 - Acute respiratory failure with hypoxia Status: Acute Assessment and Plan: * Acute respiratory failure improving; patient is saturating 90% on room air. * pulse ox reported to drop as low as 76%. Prior to admission, he was saturating 85% on room air at home. At baseline he saturates in the mid 90s and has been monitoring his pulse oximetry due to his history of chronic lung disease. He was not previously on oxygen. * 6 L per nasal cannula titrated to 2LNC * Currently patient is breathing comfortably on room air. * He has completed a course of remdesivir. Obtain home O2 evaluation with rest and with exercise prior to discharge.. * Patient states history of chronic interstitial lung disease; he was not previously on oxygen. * Wean O2 to maintain saturation greater than 90% * V/Q scan showed nondiagnostic intermediate likelihood of PE CTA: No pulmonary embolus. (2) HTN (hypertension): Code(s): I10 - Essential (primary) hypertension Status: Chronic Assessment and Plan: * Blood pressure is well controlled in the 118/60 5-1 30/74 range. * Continue with home medications of fosinopril and amlodipine. * In the setting of acute illness, will hold fosinopril. Target blood pressure 140/90. * Adjust medications as indicated (3) Hyperlipidemia: Code(s): E78.5 - Hyperlipidemia, unspecified Status: Chronic Assessment and Plan: * Continue with lovastatin continue to monitor liver functions. (4) Pneumonia due to COVID-19 virus: Code(s): U07.1 - COVID-19; J12.82 - Pneumonia due to coronavirus disease 2018 Status: Acute Assessment and Plan: * Tested positive for COVID on 07/20/2021 * Requiring supplemental oxygen Patient has completed Decadron and remdesivir day 5 * Tylenol for pain and fever * Albuterol inhaler * Anti-tussives * Chest x-ray shows worsened lung disease likely pneumonia or pulmonary edema superimposed by chronic interstitial lung disease, cardiomegaly * Strep A negative; influenza a and B negative. * Inflammatory markers: Ferritin 535, LDH 906, CRP 11.7. Repeat ferritin 589, LDH 847, CRP 5.6. Trend inflammatory markers. Repeat ferritin 504, LDH 1053, CRP 1.7. Subjective Date/time seen: 07/24/21 12:52 S: Patient was seen examined at the bedside. He is anxious to go home. He was saturating low 90s on room air. Review of Systems Review of Systems: All systems reviewed & are unremarkable except as noted in HPI and below Constitutional: Constitutional: Reports as per HPI and Reports no additional constitutional complaints Eyes: Eyes: Reports as per HPI and Reports no additional eye complaints ENT: Reports system reviewed and no additional complaints, except as documented and Reports Normal hearing present Cardiovascular: Cardiovascular: Reports no additional cardiovascular complaints Respiratory: Respiratory: Reports no additional respiratory complaints and Reports no additional respiratory complaints Gastrointestinal: Gastrointestinal: Reports as per HPI and Reports no additional gastrointestinal complaints Musculoskeletal: Musculoskeletal: Reports no additional musculoskeletal complaints Integumentary/Breasts: Skin/Breast: Reports system reviewed and no additional complaints, except as docu and Reports as per HPI Neurologic: Reports system reviewed and n
--- NOTE | 2021-07-24 13:56 | HOMEO2EVAL ---
Evaluation was performed at [facility] Home Oxygen Evaluation RC: Home Oxygen (O2) Evaluation Start: 07/24/21 08:17 Freq: ONCE Status: Active Protocol: RPE Activity Type Activity Date Activity User E-Sign Co-Sign Detail Recorded Client Recorded Date Recorded By Document 07/24/21 12:00 AMM [email or web address] 07/24/21 12:49 AMM Document 07/24/21 12:01 AMM [email or web address] 07/24/21 12:49 AMM Document 07/24/21 12:01 AMM [email or web address] 07/24/21 12:49 AMM Document 07/24/21 12:02 AMM [email or web address] 07/24/21 12:49 AMM Document 07/24/21 12:02 AMM [email or web address] 07/24/21 12:49 AMM Document 07/24/21 12:03 AMM [email or web address] 07/24/21 12:49 AMM Document 07/24/21 12:05 AMM [email or web address] 07/24/21 12:49 AMM 07/24/21 07/24/21 07/24/21 12:00 12:01 12:01 Home O2 Evaluation Test Phase Resting Exercise Exercise Oxygen Delivery Room Air Room Air Room Air Oxygen Flow Rate (L/min) Pulse Oximetry (90-100 %) 92 92 88 L Pulse Rate (60-100 beats/min) 89 94 Activity Tolerance Good Good Ambulation Distance (feet) 5 5 Ambulation Distance (meters) 1.52 1.52 Home Oxygen Evaluation Comments Treatment Charges O2 Evaluation - Inpatient 07/24/21 07/24/21 07/24/21 12:02 12:02 12:03 Home O2 Evaluation Test Phase Exercise Exercise Exercise Oxygen Delivery Room Air Nasal Cannula Nasal Cannula Oxygen Flow Rate (L/min) 1 3 Pulse Oximetry (90-100 %) 85 L 85 L 87 L Pulse Rate (60-100 beats/min) 101 H 101 H 102 H Activity Tolerance Ambulation Distance (feet) 5 5 5 Ambulation Distance (meters) 1.52 1.52 1.52 Home Oxygen Evaluation Comments Started pt on 1 Increased flow Increased flow l/min NC to 2 l/min to 4 l/min Treatment Charges 07/24/21 12:05 Home O2 Evaluation Test Phase Exercise Oxygen Delivery Nasal Cannula Oxygen Flow Rate (L/min) 4 Pulse Oximetry (90-100 %) 90 Pulse Rate (60-100 beats/min) 90 Activity Tolerance Good Ambulation Distance (feet) 5 Ambulation Distance (meters) 1.52 Home Oxygen Evaluation Comments Pt requires room air at rest and 4 l/ min with activity Treatment Charges
--- NOTE | 2021-07-24 15:47 | P.DS_ITS ---
DS: Admitting Diagnosis Discharge Date 07/24/2021 Admitting Diagnosis (1) Acute respiratory failure with hypoxia: (2) COVID-19: (3) HTN (hypertension): (4) Hyperlipidemia: DS: Discharge Diagnosis Discharge Diagnosis (1) Acute respiratory failure with hypoxia: Code(s): J96.01 - Acute respiratory failure with hypoxia Status: Acute Assessment and Plan: * Acute respiratory failure improving; patient is saturating 90% on room air. * pulse ox reported to drop as low as 76%. Prior to admission, he was saturating 85% on room air at home. At baseline he saturates in the mid 90s and has been monitoring his pulse oximetry due to his history of chronic lung disease. He was not previously on oxygen. * 6 L per nasal cannula titrated to 2LNC * Currently patient is breathing comfortably on room air. * He has completed a course of remdesivir. Obtain home O2 evaluation with rest and with exercise prior to discharge.. * Patient states history of chronic interstitial lung disease; he was not previously on oxygen. * Wean O2 to maintain saturation greater than 90% * V/Q scan showed nondiagnostic intermediate likelihood of PE CTA: No pulmonary embolus. (2) HTN (hypertension): Code(s): I10 - Essential (primary) hypertension Status: Chronic Assessment and Plan: * Blood pressure is well controlled in the 118/60 5-1 30/74 range. * Continue with home medications of fosinopril and amlodipine. * In the setting of acute illness, will hold fosinopril. Target blood pressure 140/90. * Adjust medications as indicated (3) Hyperlipidemia: Code(s): E78.5 - Hyperlipidemia, unspecified Status: Chronic Assessment and Plan: * Continue with lovastatin continue to monitor liver functions. (4) Pneumonia due to COVID-19 virus: Code(s): U07.1 - COVID-19; J12.82 - Pneumonia due to coronavirus disease 2019 Status: Acute Assessment and Plan: * Tested positive for COVID on 07/20/2021 * Requiring supplemental oxygen Patient has completed Decadron and remdesivir day 5 * Tylenol for pain and fever * Albuterol inhaler * Anti-tussives * Chest x-ray shows worsened lung disease likely pneumonia or pulmonary edema superimposed by chronic interstitial lung disease, cardiomegaly * Strep A negative; influenza a and B negative. * Inflammatory markers: Ferritin 535, LDH 906, CRP 11.7. Repeat ferritin 589, LDH 847, CRP 5.6. Trend inflammatory markers. Repeat ferritin 504, LDH 1053, CRP 1.7. DS: Summary Hospital Course Reason for hospitalization: Worsening shortness of breath, hypoxia. Hospital Course: Please refer to admission H&P. Briefly, this is a 66-year-old gentleman who has been fully vaccinated for COVID-19. The patient presented to the emergency room with complaints of shortness of breath. The patient carries a diagnosis of chronic interstitial lung disease. His primary health concierge is Dr. Gannon, from [facility], [place]. At baseline he is does not require any oxygen supplementation but owns a pulse oximeter and has been self-monitoring at home. He usually his pulse ox would run in the low to mid 90s on room air. He has been short of breath over 1 week, starting July 14 2021 through and has progressively gotten worse. The patient stated that he is the only 1 in his household that is ill. His recently tested negative for COVID He denies any other sick contacts. The patient stated that his pulse oximetry dropped to 76% on the day after admission; he did a home COVID test which came back positive
--- NOTE | 2021-07-24 15:47 | PM.DS ---
DS: Admitting Diagnosis Discharge Date 07/24/2021 Admitting Diagnosis (1) Acute respiratory failure with hypoxia: (2) COVID-19: (3) HTN (hypertension): (4) Hyperlipidemia: DS: Discharge Diagnosis Discharge Diagnosis (1) Acute respiratory failure with hypoxia: Code(s): J96.01 - Acute respiratory failure with hypoxia Status: Acute Assessment and Plan: Acute respiratory failure improving; patient is saturating 90% on room air. pulse ox reported to drop as low as 76%. Prior to admission, he was saturating 85% on room air at home. At baseline he saturates in the mid 90s and has been monitoring his pulse oximetry due to his history of chronic lung disease. He was not previously on oxygen. 6 L per nasal cannula titrated to 2LNC Currently patient is breathing comfortably on room air. He has completed a course of remdesivir. Obtain home O2 evaluation with rest and with exercise prior to discharge.. Patient states history of chronic interstitial lung disease; he was not previously on oxygen. Wean O2 to maintain saturation greater than 90% V/Q scan showed nondiagnostic intermediate likelihood of PE CTA: No pulmonary embolus. (2) HTN (hypertension): Code(s): I10 - Essential (primary) hypertension Status: Chronic Assessment and Plan: Blood pressure is well controlled in the 118/60 5-1 30/74 range. Continue with home medications of fosinopril and amlodipine. In the setting of acute illness, will hold fosinopril. Target blood pressure 140/90. Adjust medications as indicated (3) Hyperlipidemia: Code(s): E78.5 - Hyperlipidemia, unspecified Status: Chronic Assessment and Plan: Continue with lovastatin continue to monitor liver functions. (4) Pneumonia due to COVID-19 virus: Code(s): U07.1 - COVID-19; J12.82 - Pneumonia due to coronavirus disease 2019 Status: Acute Assessment and Plan: Tested positive for COVID on 07/20/2021 Requiring supplemental oxygen Patient has completed Decadron and remdesivir day 5 Tylenol for pain and fever Albuterol inhaler Anti-tussives Chest x-ray shows worsened lung disease likely pneumonia or pulmonary edema superimposed by chronic interstitial lung disease, cardiomegaly Strep A negative; influenza a and B negative. Inflammatory markers: Ferritin 535, LDH 906, CRP 11.7. Repeat ferritin 589, LDH 847, CRP 5.6. Trend inflammatory markers. Repeat ferritin 504, LDH 1053, CRP 1.7. DS: Summary Hospital Course Reason for hospitalization: Worsening shortness of breath, hypoxia. Hospital Course: Please refer to admission H&P. Briefly, this is a 66-year-old gentleman who has been fully vaccinated for COVID-19. The patient presented to the emergency room with complaints of shortness of breath. The patient carries a diagnosis of chronic interstitial lung disease. His primary mobile security architect is Dr. Gannon, from [facility], [place]. At baseline he is does not require any oxygen supplementation but owns a pulse oximeter and has been self-monitoring at home. He usually his pulse ox would run in the low to mid 90s on room air. He has been short of breath over 1 week, starting July 14 2021 through and has progressively gotten worse. The patient stated that he is the only 1 in his household that is ill. His recently tested negative for COVID He denies any other sick contacts. The patient stated that his pulse oximetry dropped to 76% on the day after admission; he did a home COVID test which came back positive and decided to come to the ED. The patient has been running low-grade fevers. He has also had a cough that been nonproductive. The patient had 1 reading of 76% on his pulse ox. At the time of his initial evaluation, the patient was placed on 6 L per nasal cannula. On the floor he was down to 3 L per nasal cannula. His H&H is 12.4 and 36.7. His D-dimer was noted to be 1.7. He does have an iodine a
== END 2021-07-24 16:10 | disposition home or self-care (01) | DRG 177 ==
LOC: ANHED 15:56 → ANH3MEDSUR 17:52
PROVIDERS: Nurse Practitioner; Admitting Provider Internal Medicine; Emergency Provider Emergency Medicine; PCP Internal Medicine; Visit Provider Internal Medicine
DX: U07.1 COVID-19 (principal); J12.82 Pneumonia due to coronavirus disease 2019; J96.01 Acute respiratory failure with hypoxia; I10 Essential (primary) hypertension; E78.5 Hyperlipidemia, unspecified; Z96.643 Presence of artificial hip joint, bilateral
CPT/HCPCS: 36415; 71045; 71275; 78580; 80053; 82565; 82728; 83605; 83615; 83735; 84439; 84443; 84460; 84480; 85025; 85380; 85610; 85730; 86140; 93005; 94618; 94640; 96365; 96372; 96375; 99285; A9270; A9540; G0378; J0131; J1100; J1200; J1650; Q9967